=== PATIENT | female | born 1970 ===

== ENCOUNTER 2016-11-09 16:20 | Emergency (ER) | payer SELFPAY ==
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
== END 2016-11-09 17:50 | disposition home or self-care (01) ==
LOC: ER 16:20
DX: S60.812A Abrasion of left wrist, initial encounter (principal); S50.812A Abrasion of left forearm, initial encounter; F41.9 Anxiety disorder, unspecified; V43.52XA Car driver injured in collision with other type car in traffic accident, initial encounter; Y92.410 Unspecified street and highway as the place of occurrence of the external cause